=== PATIENT | female | born 1940 | race Caucasian/White ===

== ENCOUNTER 2022-06-09 11:53 | Outpatient (REF) | payer MEDICARE, SELFPAY ==
[2022-06-09 15:52] LABS: Hemoglobin A1C 5.7 % (<5.7)
[2022-06-09 15:56] LABS: BUN 24 mg/dL (7-18); CREATININE 1.2 mg/dL (0.55-1.02); Calcium 9.3 mg/dL (8.5-10.1); Calculated LDL 70 mg/dL (<100); Chloride 104 mmol/L (98-107); Cholesterol 130 mg/dL (<200); Estimated GFR 45.48 (mL/min/1.73m2); Glucose 104 mg/dL (74-106); HDL Cholesterol 38 mg/dL (40-60); Potassium 4.3 mmol/L (3.5-5.1); Sodium 140 mmol/L (136-145); Triglyceride 111 mg/dL (<150)
[2022-06-12 10:19] LABS: Prealbumin 24 mg/dL (20-40)
== END 2022-06-09 11:54 | disposition home or self-care (01) ==
LOC: LBN 11:53
PROVIDERS: PCP Internal Medicine; Visit Provider Nurse Practitioner Adult Health
DX: L65.9 Nonscarring hair loss, unspecified (principal); Z13.1 Encounter for screening for diabetes mellitus; I10 Essential (primary) hypertension; R73.03 Prediabetes
CPT/HCPCS: 80048; 80061; 83036; 84134; 84443